=== PATIENT | female | born 1945 | race Hispanic/Latino ===

== ENCOUNTER 2018-02-28 05:20 | Observation (INO) | payer MEDICARE, OTHER ==
--- NOTE | 2018-02-28 08:22 | HP ---
PRIMARY CARE PHYSICIAN: Suzanne Paige D.O. CHIEF COMPLAINT: My tongue is swelling. HISTORY OF PRESENT ILLNESS: Ms. Harris is a pleasant 72-year-old female that has a history of hypert ension, diabetes, and Parkinson's disease. She was in her usual state of health until about 3:00 in the morning. She got up to go to the bathroom and noticed that her tongue felt swollen. She says th at she tried to go to sleep, but the feeling was very uncomfortable and a bit distressing and it cont inued through the morning, so she called her daughter that came take her to the hospital. She went t o the ER in [place] and they reviewed her medications and noted that she has been on benazepril. No new medications have been started and it was felt that this was the likely culprit. She was given S fly-Medrol, Pepcid and Benadryl IV and was transferred to our facility for further evaluation and obs ervation. The patient currently says that her symptoms have improved. She had also noted that her r ight side of her face felt swollen initially, but this has gotten better. She denies any trouble [place] athing and no trouble with swallowing. She does not feel that her throat is closing. No fevers or c hills. No new contacts or medications that she is aware of. REVIEW OF SYSTEMS: CONSTITUTIONAL: There have been no fevers, chills, no night sweats, no weight lo ss. HEENT: No headache, no dizziness, no visual changes, no sore throat, but the tongue swelling is as mentioned. No dysphagia, no odynophagia. No neck pain or neck swelling, no adenopathy. PULMONA RY: No hemoptysis, no cough, no wheezing. CARDIOVASCULAR: No chest pain, no shortness of breath, n o PND, no orthopnea. GASTROINTESTINAL: No abdominal pain, no nausea, no vomiting, no change in alyson ls. GENITOURINARY: No urinary frequency, hematuria, no hesitancy. NEUROLOGIC: No focal weakness, numbness, no seizures. PSYCHIATRIC: No symptoms of anxiety or depression. SKIN AND INTEGUMENT: No skin changes. No rash. PAST MEDICAL HISTORY: Significant for diabetes mellitus, hypertension, and Parkinson's disease as we ll as high cholesterol. PAST SURGICAL HISTORY: She has had a hernia repair, cataract and lens implants. ALLERGIES: VIOLETTE INHIBITORS on this admission. No other known drug allergies. FAMILY HISTORY: No history of any inheritable diseases. SOCIAL HISTORY: She is , has 7 children. She is a nonsmoker and nondrinker. Her son, Sohail Harris and Viktor Harris are her surrogate decision makers and her code status, she would want CPR, b ut does not want to be placed on a ventilator. MEDICATIONS: Include omega 3 fatty acids twice a day 1 gram twice a day, benazepril 20 mg daily, Cre stor 20 mg daily, niacin extended release at bedtime, metformin 500 mg twice daily, furosemide 40 mg daily, carbidopa/levodopa 25/100 three times a day, vitamin B12 daily, and vitamin D3 daily. PHYSICAL EXAMINATION: GENERAL: She is alert and oriented. She appears to be in no acute distress. VITAL SIGNS: Blood pressure was 158/73, heart rate 82, respiratory rate 16 and temperature she is af ebrile. HEENT: Pupils are equal, round, and reactive. Extraocular muscles are intact. Her sclerae are anic teric. Throat: There is no erythema, no exudate. On her tongue, she did have some swelling on the right lateral aspect of the more distal third of the tongue. There was no evidence of any airway com promise. The uvula was nonvisualized but there was no swelling in the softer large palate. NECK: There is no adenopathy, no bruits, no stridor. LUNGS: Clear to auscultation, no wheezing, no rales. CARDIOVASCULAR: She had a normal S1 and S2. I did not appreciate an S3 or S4. No murmurs, clicks o r rubs. ABDOMEN: Obese, it is soft, it is nontender, nondistended. Positive for bowel sounds. No rebound, no guarding. EXTREMITIES: She has got 1-2+ ankle edema. NEUROLOGIC: Neurologically, the exam is grossly nonfocal. LABORATORY DATA: Her white blood cell count was 11.9, hemoglobin 13.4, hematocrit is 39.6, and plate let count is 246. Sodium 139, potassium 4.1, chloride is 102, CO2 is 25, BUN of 22, creatinine 0.75, and glucose is 107. ASSESSMENT AND PLAN: 1. This is a very pleasant 72-year-old female who presents with tongue swelling likely as a result o f benazepril. There are no other obvious new medication or other exposures such as food exposure, et c. that could have triggered this. Therefore, we are compelled to remove the VIOLETTE inhibitor. She has already been given a dose of steroids, Pepcid, and Benadryl IV. We will give her another IV dose of Benadryl as well as Pepcid and monitor her. Her symptoms have been improving and hopefully, if by clifton buck on this afternoon, she does not have any recurrence of tongue swelling or worsening and demonstr ates continued improvement, then likely she can be discharged home. 2. For hypertension, she will be taken off of benazepril. We will put her on a different class of a ntihypertensive. Since her heart rate is a bit elevated, we will start with carvedilol. 3. For Parkinson's disease, we will continue her carbidopa/levodopa. 4. For diabetes mellitus, we will continue metformin along with sliding scale insulin and she says t hat she had been on a regular dose of insulin. We will need to clarify and reconcile that as well.
[2018-02-28] MEDS ORDERED: Ondansetron ODT 4 MG TAB SL PRN (09:10)
[2018-02-28] MEDS ORDERED: Ondansetron HCl/PF 4 MG/2 ML Vial IVP PRN (09:10)
[2018-02-28] MEDS ORDERED: Acetaminophen 325 MG TAB PO PRN (09:20)
[2018-02-28] MEDS ORDERED: Dextrose 50% Abboject 50 ML SYRINGE SLOW IVP PRN (09:20)
[2018-02-28] MEDS ORDERED: HumaLOG 300 UNITS/3 ML VIAL SC PRN (09:20)
[2018-02-28] MEDS ORDERED: Dextrose 5% in Water 1,000 ML IV PRN (09:20)
[2018-02-28] MEDS ORDERED: cloNIDine 0.1 MG TAB PO PRN (09:20)
[2018-02-28] MEDS ORDERED: Carbidopa/Levodopa 25-100 mg Tablet PO SCH ×2 (09:30→13:45)
[2018-02-28 09:34] VITALS: BMI 29.9
[2018-02-28] MEDS: diphenhydrAMINE 50 MG/ML VIAL IVP SCH ×2 (09:46→17:44)
[2018-02-28] MEDS: HumaLOG 300 UNITS/3 ML VIAL SC PRN ×2 (13:29→16:35)
[2018-02-28 16:31] VITALS: BP 135/65; TEMP 98.4
[2018-02-28] MEDS ORDERED: metFORMIN 500 MG TAB PO SCH (17:00)
[2018-02-28] MEDS ORDERED: Carvedilol 3.125 MG TAB PO SCH (17:00)
[2018-02-28] MEDS ORDERED: Famotidine 20 MG TAB PO SCH (21:00)
[2018-02-28] MEDS ORDERED: Rosuvastatin 20 MG TAB PO SCH ×2 (21:00)
--- NOTE | 2018-02-28 23:05 | DIS ---
DATE OF ADMISSION: 02/28/2018 DATE OF DISCHARGE: 02/28/2018 PRIMARY CARE PHYSICIAN: Suzanne Paige, DISCHARGE DISPOSITION: Home. PRIMARY DISCHARGE DIAGNOSES: 1. Angioedema secondary to VIOLETTE inhibitors. 2. Hypertension. 3. Diabetes mellitus, type 2. 4. Parkinson disease. DISCHARGE MEDICATIONS: Please note that the patient was taken off of benazepril and instructed not t o take any other VIOLETTE inhibitors. New medication is carvedilol 3.125 mg twice daily. Continue Cresto r 20 mg at bedtime, omega 3 fish oil one tablet twice a day, niacin 500 mg at bedtime, metformin 500 mg twice a day, Lasix 40 mg daily, and Sinemet 25/100 three times a day. CODE STATUS: Do not intubate. HOSPITAL COURSE: Ms. Harris is a very pleasant 72-year-old female who was admitted to the hospital a fter she noticed some tongue swelling early in the morning. She was concerned that it could be possi ema get worse, so she went to the emergency room in [place] and was then transferred to our facility . She has been taking benazepril and never had a problem with it, but there were no new medications started and no new exposures that she is aware of. Therefore, it is assumed that the angioedema was likely the result of benazepril. This was discontinued and she was placed on carvedilol in its place and is subsequently being discharged home and to have close followup with her primary care physician at 3-5 days.
[2018-03-01] MEDS ORDERED: Furosemide 40 MG TAB PO SCH (07:30)
== END 2018-02-28 19:41 | disposition home or self-care (01) ==
LOC: ERS 05:20 → 2NO 06:04
PROVIDERS: ADMIT Internal Medicine; ATTEND Internal Medicine
DX: T78.3XXA Angioneurotic edema, initial encounter (principal); I10 Essential (primary) hypertension; E11.9 Type 2 diabetes mellitus without complications; G20 Parkinson's disease; E78.00 Pure hypercholesterolemia, unspecified; Z79.84 Long term (current) use of oral hypoglycemic drugs; Z79.899 Other long term (current) drug therapy; Z88.8 Allergy status to other drugs, medicaments and biological substances; Z98.49 Cataract extraction status, unspecified eye; Z96.1 Presence of intraocular lens; Z98.890 Other specified postprocedural states
CPT/HCPCS: 82962; 96374; 96376; 99285; G0378; 36416; J1200

== ENCOUNTER 2019-04-16 09:24 | Observation (INO) | payer MEDICARE, OTHER ==
[~2019-04-16 09:24] MED LIST: ISOVUE-370 76%-LOCM 1 ML ONE
[2019-04-16] MEDS ORDERED: Aspirin Chewable 81 MG TAB ONE ×2 (09:57→09:59)
[2019-04-16] MEDS ORDERED: Nitroglycerin 2% Ointment 1 INCH/1 GM Packet ONE (09:58)
[2019-04-16 10:13] LABS: #Eosinphils 0.1 thou/uL (0.0-0.7); #Lymphocytes 2.3 thou/uL (1.20-3.40); #Monocytes 0.5 thou/uL (0.11-0.59); #Neutrophils 6.4 thou/uL (1.40-6.50); %Basophils 0.5 % (0.0-1.0); %Eosinophils 0.6 % (0.0-10.0); %Lymphocytes 24.5 % (21.0-51.0); %Monocytes 5.7 % (0.0-10.0); %Neutrophils 68.8 % (42.0-75.0); Hemoglobin 12.5 g/dL (12.0-16.0); Mean Corpuscular HGB CONC 33.6 g/dL (32.0-36.0); Mean Corpuscular Volume 89.3 fL (78.0-98.0); Mean Platelet Volume 7.5 fL (7.4-10.4); Platelet Count 245 thou/uL (130-400); RBC Distribution Width 12.3 % (11.5-14.5); Red Blood Cell (RBC) Count 4.19 mill/uL (4.20-5.40); White Blood Cell (WBC) Count 9.3 thou/uL (4.8-10.8)
--- NOTE | 2019-04-16 10:16 | RAD ---
Exam: Chest one view HISTORY:Chest pain. Comparison: None. FINDINGS: Cardiac silhouette:Normal Aorta: Atherosclerosis. Pulmonary vessels: Normal Costophrenic angles: Clear LUNGS: No masses or consolidation. Pneumothorax: None Osseous abnormalities: None IMPRESSION: 1. Atherosclerosis 2. No acute cardiopulmonary process.
[2019-04-16 10:37] LABS: ALT (SGPT) Less than 7 U/L (8-55); AST (SGOT) 16 U/L (5-34); Albumin 4.1 g/dL (3.4-4.8); Alkaline Phosphatase 142 U/L (40-150); Anion Gap 12 mmol/L (10-20); BUN (Urea Nitrogen) 19 mg/dL (9.8-20.1); Bilirubin, Total 0.5 mg/dL (0.2-1.2); CK (CPK) 44 U/L (29-168); Calc. Creatinine Clearance 0 mL/min (70-130); Calcium 9.3 mg/dL (7.8-10.44); Carbon Dioxide 27 mmol/L (23-31); Chloride 102 mmol/L (98-107); Estimated GFR-MDRD 76; Globulin 3.1 g/dL (2.4-3.5); Glucose 98 mg/dL (83-110); Lipase 25 U/L (8-78); Potassium 4.1 mmol/L (3.5-5.1); Protein, Total 7.2 g/dL (6.0-8.3); Sodium 137 mmol/L (136-145)
--- NOTE | 2019-04-16 11:43 | CT ---
Exam: CT angiogram of the chest HISTORY: Chest pain, x4 days ago. COMPARISON: None TECHNIQUE: CT angiogram of the chest is performed in the axial plane. Three-dimensional reformatted i mages are submitted for interpretation FINDINGS: Mediastinum: No mass, lymphadenopathy or hematoma. HEART: Normal size. No significant pericardial fluid. Coronary artery calcifications are noted. Aorta: No aneurysm or dissection atherosclerotic changes are identified. Upper solid abdominal viscera: No abnormality enhancement. Trachea and central bronchi: Patent Pleural spaces: No effusion Lung parenchyma: No masses or consolidation. 4 mm calcified nodule in the left upper lobe. Pneumothorax: None Osseous structures: No lytic or blastic lesions Soft tissues: Partially calcified mass in the medial right breast measuring 1.1 x 1.8 cm, incompletel y evaluated Pulmonary arteries: Adequate contrast opacification pulmonary arterial system to the level of segment al arteries. No filling defect to suggest pulmonary embolism IMPRESSION: 1. No evidence of pulmonary artery embolism to the level of segmental arteries 2. Partially calcified mass in the medial right breast. Dedicated mammography is recommended CODE T
[2019-04-16 13:52] LABS: Troponin I Less than 0.010 ng/mL (< 0.028)
[2019-04-16 15:49] VITALS: BMI 27.4
[2019-04-16] MEDS ORDERED: Ondansetron ODT 4 MG TAB SL PRN (16:00)
[2019-04-16] MEDS ORDERED: Acetaminophen 325 MG TAB PO PRN ×2 (16:00→16:43)
[2019-04-16] MEDS ORDERED: Ondansetron PF 4 MG/2 ML Vial IVP PRN (16:00)
[2019-04-16 16:38] LABS: Troponin I Less than 0.010 ng/mL (< 0.028)
[2019-04-16] MEDS ORDERED: Senokot S 8.6-50 MG TAB PO PRN (16:43)
[2019-04-16] MEDS ORDERED: HYDROcodone/Acetaminophen 5/325 mg Tablet PO PRN (16:43)
[2019-04-16] MEDS ORDERED: HumaLOG 300 UNITS/3 ML VIAL SC PRN ×2 (17:03)
[2019-04-16] MEDS ORDERED: Dextrose 50% Abboject 50 ML SYRINGE SLOW IVP PRN (17:03)
[2019-04-16] MEDS ORDERED: Dextrose 5% in Water 1,000 ML IV PRN (17:03)
[2019-04-16] MEDS ORDERED: Insulin Glargine 12 UNITS in Pre-Filled Syringe 1 EACH SC SCH (21:00)
[2019-04-16] MEDS ORDERED: Non-Formulary Item 1 EACH (Insulin Glargine,Hum.Rec.Anlog [Lantus Solostar] 12 UNIT) SC SCH (21:00)
[2019-04-16] MEDS: Famotidine 20 MG TAB PO SCH (21:27)
[2019-04-16] MEDS: Carbidopa/Levodopa CR 50-200 mg Tablet PO SCH (21:27)
--- NOTE | 2019-04-17 04:46 | HP ---
PRIMARY CARE PHYSICIAN: Dr. Paige. CHIEF COMPLAINT: Chest pain. HISTORY OF PRESENT ILLNESS: Ms. Harris is a 74-year-old female who reported to the emergency room today with complaints of chest pain that started 4 days ago. She reports that the sensation is tightness, exacerbated by deep breathing. She denies any nausea, vomiting, pain or swelling in her legs. She does admit to generalized weakness and does have complaints of some chronic upper back pain. Pertinent medical history includes diabetes and hypertension. Reports that she has seen Dr. Tolliver in the past. EKG in the emergency room showed normal sinus rhythm, beats per minute 73, ST segments, T-waves are normal, axis is normal. She did have some Q-waves in lead III and aVF. Also, had a CTA of the chest which showed no evidence of pulmonary artery embolism. On the CTA chest, they did find a partially calcified mass in the medial right breast and they recommended a dedicated mammogram. Based on presentation and risk factors, the patient was admitted to the observation unit for further risk stratification. REVIEW OF SYSTEMS: Reports generalized weakness. Reports chest pain. Reports shortness of breath. Denied any diaphoresis. Denied any palpitations. All other systems reviewed and are negative unless mentioned in the HPI. PAST MEDICAL HISTORY: Diabetes insulin dependent, hypertension, and essential tremors. PAST SURGICAL HISTORY: Cataracts and hernia repair. PSYCHIATRIC HISTORY: None. SOCIAL HISTORY: Lives with her family. Denies any drug or smoking history. Denies any alcohol use. Immediate family report that neither parent had any cardiac issues. KNOWN ALLERGIES: Benazepril gives her angioedema. HER CURRENT MEDICATIONS: Per the ER system; 1. Aspirin 81 mg p.o. daily. 2. Sinemet CR 25/100 mg p.o. t.i.d. 3. Vitamin D 1000 units p.o. daily. 4. Trulicity 1.5 mg subcu q.7 days. 5. Flonase 2 sprays each naris daily. 6. Lasix 40 mg p.o. daily. 7. Lantus 12 units subcu at bedtime. 8. Vitamin B12, 500 mcg p.o. daily. 9. Metformin ER 1000 mg p.o. b.i.d. 10. Fish oil two capsules p.o. daily. 11. Crestor 20 mg p.o. daily. 12. Valsartan 80 mg p.o. daily. 13. Coreg 3.125 mg p.o. b.i.d. PHYSICAL EXAMINATION: VITAL SIGNS: Blood pressure 125/68, pulse is 80, respirations 17, temperature is 98, pulse ox is 96% on room air. CONSTITUTIONAL: The patient appears nontoxic, is in no acute distress, is alert and oriented to person, place, and time. HEENT: Head is atraumatic and normocephalic. Eyes; eyelids are normal to inspection. Pupils are equally round and reactive to light. ENT; mucous membranes are moist. Mouth exam is normal. NECK: Trachea is midline. No tenderness. RESPIRATORY/CHEST: Breath sounds are clear. No findings of any respiratory distress. CARDIOVASCULAR: Regular heart rate and rhythm. There is a systolic murmur present, 2/. ABDOMEN: Nontender. Bowel sounds are heard. BACK: Normal inspection. Normal range of motion. No tenderness. EXTREMITIES: Upper extremities; normal range of motion. Motor strength is normal. Radial pulses are normal. Lower extremities; normal range of motion. Motor strength is normal. Sensation intact. Pedal pulses are normal. NEUROLOGIC: The patient is oriented to person, place, and time. Speech is normal. No focal motor or sensory deficits. SKIN: Warm, dry, normal in color. PSYCHIATRIC: She has a normal affect. PERTINENT LABORATORY DATA: White blood cell count 9.3, hemoglobin 12.5, hematocrit is 37.4, and platelet count is 245. D-dimer was 0.56. Chemistry unremarkable. Troponins x3 were undetectable. Lipase was 25. ASSESSMENT AND PLAN: 1. Chest pain. We will do the stress test in the morning. Troponins x3 have been negative. 2. Hypertension. We will continue her home medications. We will trend. 3. Diabetes. We will hold metformin for now. Check Accu-Cheks a.c. and at bedtime. We will order sliding scale for coverage as needed. 4. Essential tremors. Continue home medication. 5. Hyperlipidemia. We will check lipids in the morning. Restart home medications. 6. Aspirin will be given daily. 7. Deep venous thrombosis and gastrointestinal prophylaxis will be started. 8. Clinical course dependent on clinical findings. Job ID: [id number]
[2019-04-17 05:40] LABS: #Basophils 0.1 thou/uL (0.0-0.2); #Eosinphils 0.1 thou/uL (0.0-0.7); #Lymphocytes 2.6 thou/uL (1.20-3.40); #Monocytes 0.7 thou/uL (0.11-0.59); #Neutrophils 4.8 thou/uL (1.40-6.50); %Basophils 0.6 % (0.0-1.0); %Eosinophils 1.3 % (0.0-10.0); %Lymphocytes 31.2 % (21.0-51.0); Hemoglobin 11.7 g/dL (12.0-16.0); Mean Corpuscular HGB CONC 33.7 g/dL (32.0-36.0); Mean Corpuscular Hemoglobin 30.3 pg (27.0-31.0); Mean Corpuscular Volume 89.8 fL (78.0-98.0); Mean Platelet Volume 7.5 fL (7.4-10.4); Platelet Count 252 thou/uL (130-400); RBC Distribution Width 12.4 % (11.5-14.5); Red Blood Cell (RBC) Count 3.86 mill/uL (4.20-5.40); White Blood Cell (WBC) Count 8.2 thou/uL (4.8-10.8)
[2019-04-17 06:07] LABS: ALT (SGPT) Less than 7 U/L (8-55); AST (SGOT) 12 U/L (5-34); Albumin 3.6 g/dL (3.4-4.8); Alkaline Phosphatase 117 U/L (40-150); Anion Gap 11 mmol/L (10-20); BUN (Urea Nitrogen) 19 mg/dL (9.8-20.1); Bilirubin, Total 0.4 mg/dL (0.2-1.2); Calc. Creatinine Clearance 79 mL/min (70-130); Calcium 8.8 mg/dL (7.8-10.44); Carbon Dioxide 25 mmol/L (23-31); Chloride 105 mmol/L (98-107); Cholesterol 110 mg/dl (< 200 Desired); Estimated GFR-MDRD 83; Globulin 2.6 g/dL (2.4-3.5); Glucose 97 mg/dL (83-110); HDL Cholesterol 37 mg/dL (>60 Neg Risk); LDL Cholesterol, Calculated 49 mg/dL; Potassium 3.9 mmol/L (3.5-5.1); Protein, Total 6.2 g/dL (6.0-8.3); Sodium 137 mmol/L (136-145); Triglycerides 119 mg/dL (Less than 150)
[2019-04-17] MEDS ORDERED: Carvedilol 3.125 MG TAB PO SCH (08:00)
[2019-04-17] MEDS ORDERED: Enoxaparin Sodium 40 MG/0.4 ML SYRINGE SC SCH (09:00)
[2019-04-17] MEDS ORDERED: Aspirin 81 mg Enteric Coated Tablet PO SCH (09:00)
[2019-04-17] MEDS ORDERED: Rosuvastatin 20 MG TAB PO SCH (09:00)
[2019-04-17] MEDS ORDERED: Valsartan 80 MG TAB PO SCH (09:00)
[2019-04-17] MEDS ORDERED: Furosemide 40 MG TAB PO SCH (09:00)
[2019-04-17] MEDS: Carbidopa/Levodopa CR 50-200 mg Tablet PO SCH (11:49)
[2019-04-17] MEDS: Famotidine 20 MG TAB PO SCH (11:50)
--- NOTE | 2019-04-17 11:53 | NM ---
NM Cardiac Stress W EF WF History: [Chest pain] Comparison: None. Findings: Stress and rest performed after the intravenous administration of 31 and a 10.2 mCi technet ium 99m sestamibi, respectively. Adequate left ventricular uptake of radiotracer. No scar or ischemia. Normal wall motion. Calculated ejection fraction of 84%. Impression: Normal nuclear medicine cardiac stress test and ejection fraction.
[2019-04-17 12:00] VITALS: BP 155/66; TEMP 97.7
[2019-04-17] MEDS ORDERED: ADENOSINE 60 MG/20 ML VIAL ONE (20:06)
--- NOTE | 2019-04-18 04:57 | DIS ---
DATE OF ADMISSION: 04/16/2019 DATE OF DISCHARGE: 04/17/2019 CHIEF COMPLAINT ON ADMISSION: Chest pain. DISCHARGE DIAGNOSES: 1. Chest pain and shortness of breath, acute coronary syndrome ruled out, MPI negative for reversible ischemia, CTA negative for pulmonary embolism, questionably secondary to anxiety, resolved. 2. Hypertension. 3. Type 2 diabetes mellitus. 4. Essential tremor. 5. Incidental finding of partially calcified mass of left medial breast. BRIEF HOSPITAL COURSE: The patient is a pleasant 74-year-old female with past medical history as outlined above, who presented to the hospital with complaints of a 4-day intermittent history of chest pain with associated shortness of breath. Her chest pain seemed to be exacerbated by deep breathing, and she complained of not being able to take a deep breath. She presented to the ER for further workup and treatment. EKG showed sinus rhythm with no acute ST or T-wave changes. Serial troponin was negative. CTA of the chest was negative for pulmonary embolism, but did show a partially calcified mass in the right medial breast as outlined above. She underwent nuclear stress test, which showed normal left ventricular systolic function and no evidence of reversible ischemia. She has had no recurrence of her symptoms since arrival. She feels well. She has tolerated a full diet. No nausea or vomiting. No other complaints. DISCHARGE DISPOSITION: Home. DISCHARGE CONDITION: Stable. FOLLOWUP AND DISCHARGE INSTRUCTIONS: The patient will continue aggressive risk factor modification along with aggressive control of her diabetes. She will continue an aspirin as well as a statin. She will follow up with her primary care physician, as outpatient mammography has been recommended. The patient does state that she has had multiple biopsies in the past. Her daughters are present and all questions have been answered to their satisfaction. The patient will be discharged home in good condition today with plans for outpatient followup and mammography. Job ID: [id number] MTDD
== END 2019-04-17 14:25 | disposition home or self-care (01) ==
LOC: ERS 09:24 → ERHOLD 12:14 → 2SW 15:39
PROVIDERS: ADMIT Internal Medicine; ATTEND Internal Medicine
DX: R07.89 Other chest pain (principal); R53.1 Weakness; G89.29 Other chronic pain; M54.89 Other dorsalgia; E11.9 Type 2 diabetes mellitus without complications; I10 Essential (primary) hypertension; G25.0 Essential tremor; E78.5 Hyperlipidemia, unspecified; R06.02 Shortness of breath; N63.20 Unspecified lump in the left breast, unspecified quadrant; I70.0 Atherosclerosis of aorta; Z79.4 Long term (current) use of insulin; Z79.82 Long term (current) use of aspirin; Z79.899 Other long term (current) drug therapy; Z88.8 Allergy status to other drugs, medicaments and biological substances
CPT/HCPCS: 71045; 71275; 78452; 80053; 80061; 82550; 82962 ×2; 83690; 84484 ×2; 85025; 85379; 93005; 93017; 94760; 99285; A9500; G0378 ×2; 36415; 36416; 84443; J0153; J1650; J1825; Q9966

== ENCOUNTER 2019-05-04 08:54 | Outpatient (CLI) | payer MEDICARE, OTHER ==
--- NOTE | 2019-05-04 09:30 | MMO ---
Bilateral MAMMO Bilat Diag [facility]. CLINICAL HISTORY: Patient is 74 years old and is seen for diagnostic exam. The patient has no family history of breast cancer. The patient has no personal history of cancer. The patient has a history of right Excisional Biopsy more than 10 years ago - benign and left Excisional Biopsy more than 10 years ago - benign. VIEWS: The views performed were: bilateral craniocaudal with tomosynthesis; bilateral mediolateral oblique with tomosynthesis; and bilateral mediolateral with tomosynthesis. FILMS COMPARED: No priors for comparison MAMMOGRAM FINDINGS: There are scattered fibroglandular densities. Benign calcifications are noted bilaterally. 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 There are no suspicious masses, suspicious calcifications, or new areas of architectural distortion. IMPRESSION: THERE IS NO MAMMOGRAPHIC EVIDENCE OF MALIGNANCY. A ROUTINE FOLLOW-UP MAMMOGRAM IN 1 YEAR IS RECOMMENDED. THE RESULTS OF THIS EXAM WERE SENT TO THE PATIENT. ACR BI-RADS Category 2 - Benign finding MAMMOGRAPHY NOTE: 1. A negative mammogram report should not delay a biopsy if a dominant of clinically suspicious mass is present. 2. Approximately 10% to 15% of breast cancers are not detected by mammography. 3. Adenosis and dense breasts may obscure an underlying neoplasm.
== END 2019-05-04 08:55 | disposition home or self-care (01) ==
LOC: BICMAMMO 08:54
PROVIDERS: ATTEND Family Medicine
DX: N63.10 Unspecified lump in the right breast, unspecified quadrant (principal)
CPT/HCPCS: 77066; G0279

== ENCOUNTER 2021-05-04 10:30 | Emergency (ER) | payer MEDICARE ==
[2021-05-04 12:04] LABS: #Eosinphils 0.1 thou/uL (0.0-0.7); #Lymphocytes 2.7 thou/uL (1.20-3.40); #Monocytes 0.9 thou/uL (0.11-0.59); #Neutrophils 9.5 thou/uL (1.40-6.50); %Basophils 0.3 % (0.0-1.0); %Eosinophils 0.7 % (0.0-10.0); %Lymphocytes 20.1 % (21.0-51.0); %Monocytes 6.6 % (0.0-10.0); %Neutrophils 72.3 % (42.0-75.0); Hemoglobin 12.9 g/dL (12.0-16.0); Mean Corpuscular Hemoglobin 29.2 pg (27.0-31.0); Mean Corpuscular Volume 91.2 fL (78.0-98.0); Platelet Count 293 thou/uL (130-400); RBC Distribution Width 11.7 % (11.5-14.5); Red Blood Cell (RBC) Count 4.42 mill/uL (4.20-5.40); White Blood Cell (WBC) Count 13.1 thou/uL (4.8-10.8)
[2021-05-04 12:42] LABS: ALT (SGPT) 11 U/L (8-55); AST (SGOT) 15 U/L (5-34); Albumin 4.3 g/dL (3.4-4.8); Alkaline Phosphatase 121 U/L (40-110); Anion Gap 14 mmol/L (10-20); BUN (Urea Nitrogen) 23 mg/dL (9.8-20.1); Bilirubin, Total 0.4 mg/dL (0.2-1.2); Calc. Creatinine Clearance 0 mL/min (70-130); Calcium 9.1 mg/dL (7.8-10.44); Carbon Dioxide 25 mmol/L (23-31); Chloride 102 mmol/L (98-107); Globulin 3.2 g/dL (2.4-3.5); Glucose 162 mg/dL (83-110); Lipase 37 U/L (8-78); Protein, Total 7.5 g/dL (5.8-8.1); Sodium 137 mmol/L (136-145)
== END 2021-05-04 14:47 | disposition home or self-care (01) ==
LOC: ERS 10:30
DX: R07.89 Other chest pain (principal); E11.9 Type 2 diabetes mellitus without complications; I10 Essential (primary) hypertension; Z79.82 Long term (current) use of aspirin; Z79.899 Other long term (current) drug therapy
CPT/HCPCS: 36415; 71045; 80053; 83690; 84484; 85025; 93005; 94760

== ENCOUNTER 2021-09-13 18:51 | Emergency (ER) | payer MEDICARE, OTHER ==
[2021-09-13 19:29] LABS: #Basophils 0.1 thou/uL (0.0-0.2); #Eosinphils 0.1 thou/uL (0.0-0.7); #Lymphocytes 3.2 thou/uL (1.20-3.40); #Monocytes 0.9 thou/uL (0.11-0.59); #Neutrophils 9.6 thou/uL (1.40-6.50); %Basophils 0.5 % (0.0-1.0); %Eosinophils 0.7 % (0.0-10.0); %Monocytes 6.7 % (0.0-10.0); Hemoglobin 12.4 g/dL (12.0-16.0); Mean Corpuscular HGB CONC 33.3 g/dL (32.0-36.0); Mean Corpuscular Hemoglobin 31.1 pg (27.0-31.0); Mean Corpuscular Volume 93.3 fL (78.0-98.0); Mean Platelet Volume 7.9 fL (7.4-10.4); Platelet Count 268 thou/uL (130-400); RBC Distribution Width 11.6 % (11.5-14.5); Red Blood Cell (RBC) Count 3.99 mill/uL (4.20-5.40); White Blood Cell (WBC) Count 13.9 thou/uL (4.8-10.8)
[2021-09-13 19:53] LABS: ALT (SGPT) Less than 7 U/L (8-55); AST (SGOT) 24 U/L (5-34); Albumin 3.9 g/dL (3.4-4.8); Alkaline Phosphatase 116 U/L (40-110); Anion Gap 14 mmol/L (10-20); BUN (Urea Nitrogen) 34 mg/dL (9.8-20.1); Bilirubin, Total 0.4 mg/dL (0.2-1.2); CK (CPK) 42 U/L (29-168); Calc. Creatinine Clearance 0 mL/min (70-130); Calcium 9.1 mg/dL (7.8-10.44); Carbon Dioxide 24 mmol/L (23-31); Chloride 104 mmol/L (98-107); Globulin 3.1 g/dL (2.4-3.5); Glucose 99 mg/dL (83-110); Lipase 32 U/L (8-78); Potassium 5.1 mmol/L (3.5-5.1); Sodium 137 mmol/L (136-145)
[2021-09-13 19:59] LABS: Bilirubin Negative (Negative); Blood, Urine Negative (Negative); Clarity Clear (Clear); Glucose, Urine (Dipstick) Normal (Negative); Ketone, Urine Negative (Negative); Leukocyte 500 Leu/uL (Negative); Nitrite Negative (Negative); Protein, Urine (Dipstick) Negative (Neg-Trace); RBC/HPF 0-3 HPF (0-3); Specific Gravity, Urine 1.015 (1.002-1.036); Squamous Epithelial 0-3 HPF (0-3); Urobilinogen Normal mg/dL (Less than 2); WBC/HPF Greater than 50 HPF (0-3); pH, Urine 5.5 (5.0-9.0)
[2021-09-13 20:00] LABS: Bacteria/HPF 1+ HPF (None Seen)
== END 2021-09-13 20:32 | disposition home or self-care (01) ==
LOC: ERS 18:51
DX: N39.0 Urinary tract infection, site not specified (principal); G20 Parkinson's disease; R29.700 NIHSS score 0
CPT/HCPCS: 70450; 80053; 81003; 81015; 82550; 83690; 84484; 85025; 93005

== ENCOUNTER 2022-04-06 12:28 | Outpatient (CLI) | payer MEDICARE | END 2022-04-06 12:29 | disposition home or self-care (01) | LOC: ULT 12:28 | PROVIDERS: ATTEND Family Medicine | DX: R10.30 Lower abdominal pain, unspecified (principal); K76.0 Fatty (change of) liver, not elsewhere classified; K82.8 Other specified diseases of gallbladder | CPT/HCPCS: 76700; 76856; 93976 ==

== ENCOUNTER 2025-09-29 11:11 | Day surgery (SDC) | payer MEDICARE ==
[2025-09-28 15:52] VITALS: BMI 23.8
[2025-09-29 12:57] LABS: #Basophils 0.05 10x3/uL (0.0-0.2); #Eosinophils 0.06 10x3/uL (0.0-0.7); #Monocytes 1.05 10x3/uL (0.11-0.59); #Neutrophils 7.06 10x3/uL (1.40-6.50); %Basophils 0.4 % (0.0-1.0); %Eosinophils 0.5 % (0.0-10.0); %Lymphocytes 26.1 % (21.0-51.0); %Monocytes 9.4 % (0.0-10.0); %Neutrophils 63.3 % (42.0-75.0); Hematocrit 33.5 % (36.0-47.0); Hemoglobin 10.7 g/dL (12.0-16.0); Mean Corpuscular Hemoglobin 28.8 pg (27.0-31.0); Mean Corpuscular Volume 90.1 fL (78.0-98.0); Platelet Count 336 10x3/uL (130-400); Red Blood Cell (RBC) Count 3.72 mill/uL (4.20-5.40); White Blood Cell (WBC) Count 11.16 10x3/uL (4.8-10.8)
[2025-09-29] MEDS ORDERED: Ropivacaine 0.5% HCl/PF (150 MG/30 ML VIAL) ONE (13:04)
[2025-09-29 13:13] LABS: Anion Gap 14 mmol/L (10-20); BUN (Urea Nitrogen) 20 mg/dL (9.8-20.1); Calc. Creatinine Clearance 70 mL/min (70-130); Calcium 8.6 mg/dL (7.8-10.44); Carbon Dioxide 25 mmol/L (23-31); Chloride 102 mmol/L (98-107); Glucose 142 mg/dL (83-110); Potassium 4.9 mmol/L (3.5-5.1); Sodium 136 mmol/L (136-145)
[2025-09-29] MEDS ORDERED: CEFAZOLIN 2 GM VIAL ONE (13:21)
[2025-09-29] MEDS ORDERED: fentaNYL PF 100 MCG/2 ML SYRINGE ONE (13:58)
[2025-09-29] MEDS ORDERED: Ondansetron PF 4 MG/2 ML Vial ONE (14:16)
[2025-09-29] MEDS ORDERED: PROPOFOL 200 MG/20 ML VIAL ONE (14:16)
[2025-09-29] MEDS ORDERED: Lidocaine 1% PF 5 ML VIAL ONE (14:37)
[2025-09-29] MEDS ORDERED: Rocuronium Bromide 10 MG/ML (10ML VIAL) ONE (14:37)
[2025-09-29] MEDS ORDERED: PHENYLEPHRINE-NS 100 MCG/ML 10 ML SYRINGE ONE (14:37)
[2025-09-29] MEDS ORDERED: SUGAMMADEX SODIUM 200 MG/2 ML VIAL ONE (15:30)
== END 2025-09-29 17:28 | disposition home or self-care (01) ==
LOC: SDC 11:11
PROVIDERS: ATTEND Orthopaedic Surgery
PROC: 0PSF04Z Reposition Right Humeral Shaft with Internal Fixation Device, Open Approach (ICD-10-PCS; principal; 2025-09-29)
DX: S42.491A Other displaced fracture of lower end of right humerus, initial encounter for closed fracture (principal); I10 Essential (primary) hypertension; E11.9 Type 2 diabetes mellitus without complications; E78.5 Hyperlipidemia, unspecified; Z88.8 Allergy status to other drugs, medicaments and biological substances; Z79.84 Long term (current) use of oral hypoglycemic drugs; Z79.82 Long term (current) use of aspirin; Z79.899 Other long term (current) drug therapy; W01.0XXA Fall on same level from slipping, tripping and stumbling without subsequent striking against object, initial encounter
CPT/HCPCS: 24546; 64415; 73060; 80048; 85025; 93005; C1713 ×13; J0282; J1100; J2405; J2704; J2795; J3010; 93010